=== PATIENT | male | born 2000 ===

== ENCOUNTER 2021-02-04 18:50 | Emergency (ER) | payer SELFPAY ==
[2021-02-04] MEDS ORDERED: Ondansetron 4 MG Tab.DIS PO ONE (20:02)
--- NOTE | 2021-02-04 20:08 | EDM.PDOC ---
ED HPI GENERAL MEDICAL PROBLEM - General Chief Complaint: Respiratory Problem Stated Complaint: SOB DIZZY Time Seen by Provider: 02/04/21 19:51 Source of Information: Reports: Patient, RN Notes Reviewed History Limitations: Reports: No Limitations - History of Present Illness INITIAL COMMENTS - FREE TEXT/NARRATIVE: Patient is a 20-year-old male who presents to the ER for the evaluation of his ongoing illness, states he has been short of breath, dizzy, for a few days now. 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 States that this is outside and not in an enclosed space or garage. States that his son was positive for influenza 2 weeks ago as well as his . But he states they are better now. He is complaining of some chills, shortness of breath, dizziness/lightheadedness. States that he is having some nausea and vomiting as of late, states that he threw up his "soda that he drank in the ER waiting room" while waiting to be seen. States that he is not really eaten much or drank much in the past 3 days. Generalized Pain Score (Numeric/FACES): 5 - Related Data Allergies Allergy/AdvReac Type Severity Reaction Status Date / Time No Known Allergies Allergy Verified 02/04/21 20:07 Past Medical History - Past Health History Medical/Surgical History: Denies Medical/Surgical History Social & Family History - Tobacco Use Tobacco Use Status *Q: Never Tobacco User Second Hand Smoke Exposure: No - Caffeine Use Caffeine Use: Reports: Coffee, Energy Drinks - Recreational Drug Use Recreational Drug Use: No ED ROS GENERAL - Review of Systems Review Of Systems: Comprehensive ROS is negative, except as noted in HPI. ED EXAM, GENERAL - Physical Exam Exam: See Below Exam Limited By: No Limitations General Appearance: Alert, WD/WN, No Apparent Distress Respiratory/Chest: No Respiratory Distress, Lungs Clear, Normal Breath Sounds, No Accessory Muscle Use, Chest Non-Tender Cardiovascular: Normal Peripheral Pulses, Regular Rate, Rhythm, No Edema Peripheral Pulses: 2+: Radial (L), Radial (R) GI/Abdominal: Normal Bowel Sounds, Soft, Non-Tender, No Distention, No Mass Extremities: Normal Inspection, Normal Capillary Refill Neurological: Alert, Oriented, Normal Cognition, No Motor/Sensory Deficits Psychiatric: Normal Affect, Normal Mood Skin Exam: Warm, Dry, Intact, Normal Color, No Rash Course - Vital Signs Last Recorded V/S: Last Vital Signs Temp 101.6 F H 02/04/21 19:45 Pulse 119 H 02/04/21 19:45 Resp 20 02/04/21 19:45 BP 137/98 H 02/04/21 19:45 Pulse Ox 95 02/04/21 19:45 - Orders/Labs/Meds Labs: Laboratory Tests 02/04/21 02/04/21 Range/Units 19:51 20:33 ABG Hemoglobin 15.6 (12.0-18.0) g/L ABG Oxyhemoglobin 93.6 ABG Carboxyhemoglobin 1.4 (0.00-1.50) %THgb ABG Methemoglobin 1.2 (0.00-1.5) % O2 Delivery Device Room air Influenza Type A RNA Negative (NEGATIVE) Influenza Type B RNA Negative (NEGATIVE) SARS-CoV-2 RNA (MARGARET) Negative (NEGATIVE) Meds: Medications Discontinued Medications Generic Name Dose Route Start Last Admin Trade Name Freq PRN Reason Stop Dose Admin Ondansetron HCl 4 mg 02/04/21 20:02 02/04/21 20:08 Ondansetron 4 Mg Tab.Dis PO 02/04/21 20:03 4 mg ONETIME ONE Administration - Re-Assessments/Exams Free Text/Narrative Re-Assessment/Exam: 02/04/21 20:07 Patient presents to the ER for evaluation of his multiple symptoms, and possible carbon monoxide poisoning, we will get a coox blood gas for this and we will also do a Covid/flu screen for initial management. 02/04/21 20:58 Patient's coox is normal, and COVID/flu screen was negative as well. Likely patient suffering from another viral illness will have him discharged home with conservative recommendations. Departure - Departure Time of Disposition: 20:58 Disposition: Home, Self-Care 01 Condition: Good Clinical Impression: Viral URI with cough - Discharge Information *PRESCRIPTION DRUG MONITORING PROGRAM REVIEWED*: No *COPY OF PRESCRIPTION DRUG MONITORING REPORT IN PATIENT MARISSA: No Instructions: Viral Respiratory Infection, [id number] Forms: ED Department Discharge Additional Instructions: You were evaluated in the ER today for possible carbon monoxide poisoning/exposure, and your ongoing respiratory illness. You are not suffering from acute carbon monoxide poisoning as evidenced by your carboxyhemoglobin level at 1.4. This is within normal limits. Your Covid/flu screen was also negative at today's visit. It is likely that you have a different viral illness causing you to feel somewhat ill. Recommend you take some Tylenol ibuprofen every 6 hours as needed for ongoing pain/symptomatic management. You may use a [id number] cough medicine like Robitussin for ongoing cough if warranted. Do not hesitate to return to the ER at any time if symptoms change or worsen. Sepsis Event Note (ED) - Focused Exam Vital Signs: Vital Signs Temp Pulse Resp BP Pulse Ox 02/04/21 19:45 101.6 F H 119 H 20 137/98 H 95
[2021-02-04 20:33] LABS: CORONAVIRUS COVID-19 NAA NEGATIVE (NEGATIVE)
== END 2021-02-04 21:09 | disposition home or self-care (01) ==
LOC: JD.ED 18:50
DX: J06.9 Acute upper respiratory infection, unspecified (principal); Z20.822 Contact with and (suspected) exposure to COVID-19
CPT/HCPCS: 0240U; 36600; 82803; 99284; A9270